=== PATIENT | male | born 1955 | race Caucasian/White ===

== ENCOUNTER 2021-05-17 02:57 | Emergency (ER) | payer MEDICARE, BC ==
[2021-05-17] MEDS ORDERED: ONDANSETRON 4 MG/2 ML VIAL IVP STA (03:40)
[2021-05-17] MEDS ORDERED: MORPHINE SULFATE 4 MG/ML SYRINGE IV STA (03:40)
[2021-05-17 04:19] LABS: Basophils % (A) 0 %; Eosinophils # (A) 0.1 k/uL (0-0.7); Eosinophils % (A) 1 %; HCT 41.3 % (39.0-53.0); HGB 14.2 gm/dL (13.0-17.5); Lymphocytes # (A) 1.7 k/uL (1.0-4.8); Lymphocytes % (A) 14 %; MCH 32.9 pg (25.0-35.0); MCHC 34.3 g/dL (31.0-37.0); MCV 95.8 fL (80.0-100.0); Mean Platelet Volume 8.1; Monocytes # (A) 0.6 k/uL (0-1.0); Monocytes % (A) 5 %; Neutrophils # (A) 9.5 k/uL (1.3-7.7); Neutrophils % (A) 79 %; Platelet Count 265 k/uL (150-450); RBC 4.31 m/uL (4.30-5.90); RDW 12.8 % (11.5-15.5); WBC 12.1 k/uL (3.8-10.6)
[2021-05-17 04:28] LABS: Albumin 3.8 g/dL (3.5-5.0); Calcium 9.3 mg/dL (8.4-10.2); Potassium 3.9 mmol/L (3.5-5.1); Total Bilirubin 0.5 mg/dL (0.2-1.3); Total Protein 6.4 g/dL (6.3-8.2)
--- NOTE | 2021-05-17 04:56 | CT ---
EXAMINATION TYPE: CT abdomen pelvis wo con DATE OF EXAM: 05/17/2021 COMPARISON: None HISTORY: CT DLP: mGycm Automated exposure control for dose reduction was used. Exam performed without contrast. There is mild subsegmental atelectasis at the lung bases. There is no pleural effusion. There is no p ericardial effusion. Liver and spleen appear intact. There are clips from cholecystectomy. Stomach is intact. There is no pancreatic mass. The bile ducts are not dilated. There is no adrenal mass. Kidneys show normal size and contour. There is mild left-sided hydronephros is. There is 4 mm calculus in the mid left ureter at the level of the upper sacroiliac joint. There i s mild proximal hydroureter. I see no calculus within the kidneys. Bladder distends smoothly. There i s no inguinal hernia. There is no free fluid in the pelvis. Appendix is posterior and medial and appe ars normal. There is no mesenteric edema. There is no ascites or free air. There is no bowel obstruction. There a re a few sigmoid diverticula. There is no diverticulitis. Lumbar vertebra have normal alignment. There is no compression fracture. The posterior elements are i ntact. There is some facet arthropathy in the lower lumbar spine. There is moderate spinal stenosis a t L4-5 due to facet arthropathy. The bony pelvis is intact. The hip joints are intact. IMPRESSION: Obstructing calculus mid left ureter with left-sided hydronephrosis. Moderate spinal stenosis at L4-5.
[2021-05-17] MEDS ORDERED: TAMSULOSIN 0.4 MG CAP.ER.24H PO STA (05:03)
[2021-05-17] MEDS ORDERED: HYDROmorphone 0.5 MG/0.5 ML SYRINGE IVP STA (05:26)
--- NOTE | 2021-05-17 05:44 | ED ---
Back Pain HPI - General Chief Complaint: Back Pain/Injury Stated Complaint: Back pain Time Seen by Provider: 05/17/21 03:27 Source: patient Limitations: no limitations - History of Present Illness MD Complaint: back pain Onset/Timin -: days(s) Similar Symptoms Previously: No Place: home Radiation: none Severity: severe Quality: aching Consistency: constant Improves With: none Worsens With: none Associated Symptoms: diaphoresis, nausea/vomiting - Related Data Previous Rx's Medication Instructions Recorded HYDROcodone/APAP 5-325MG [[place] 1 tab PO Q4HR PRN 3 Days #18 tab 05/17/21 5-325] Ondansetron Odt [Zofran ODT] 4 mg PO Q8HR PRN #10 tab 05/17/21 Tamsulosin [Flomax] 0.4 mg PO DAILY #14 cap 05/17/21 Allergies Allergy/AdvReac Type Severity Reaction Status Date / Time Penicillins Allergy Anaphylaxis Verified 05/17/21 03:01 tree nut Allergy Anaphylaxis Verified 05/17/21 03:01 Review of Systems ROS Statement: Those systems with pertinent positive or pertinent negative responses have been documented in the HPI. ROS Other: All systems not noted in ROS Statement are negative. Constitutional: Denies: fever, chills, weakness Respiratory: Denies: cough, dyspnea Cardiovascular: Denies: chest pain, palpitations, edema Gastrointestinal: Reports: as per HPI, abdominal pain, nausea, vomiting. Denies: diarrhea, constipation, hematemesis, melena, hematochezia Genitourinary: Denies: dysuria, frequency, hematuria, testicular pain, testicular mass Musculoskeletal: Denies: back pain Skin: Denies: rash Neurological: Denies: headache, weakness, numbness Past Medical History Past Medical History: No Reported History History of Any Multi-Drug Resistant Organisms: None Reported Additional Past Surgical History / Comment(s): COLONOSCOPY Past Anesthesia/Blood Transfusion Reactions: No Reported Reaction Smoking Status: Never smoker Past Alcohol Use History: None Reported Past Drug Use History: None Reported General Exam Limitations: no limitations General appearance: alert, in distress Head exam: Present: atraumatic, normocephalic Eye exam: Present: normal appearance. Absent: scleral icterus, conjunctival injection Respiratory exam: Present: normal lung sounds bilaterally. Absent: respiratory distress, wheezes, rales, rhonchi, stridor Cardiovascular Exam: Present: regular rate, normal rhythm, normal heart sounds. Absent: systolic murmur, diastolic murmur, rubs, gallop GI/Abdominal exam: Present: soft. Absent: distended, tenderness, guarding, rebound, rigid, mass Extremities exam: Present: normal inspection, normal capillary refill. Absent: pedal edema, calf tenderness Back exam: Present: normal inspection, CVA tenderness (L). Absent: CVA tenderness (R), vertebral tenderness Neurological exam: Present: alert Skin exam: Present: warm, dry, intact, normal color Course Vital Signs 05/17/21 05/17/21 02:57 06:28 Temperature 97.9 F 97.5 F L Pulse Rate 76 66 Respiratory 20 16 Rate Blood Pressure 134/85 108/64 O2 Sat by Pulse 98 99 Oximetry Medical Decision Making - Lab Data Result diagrams: 05/17/21 03:54 05/17/21 03:54 Lab Results 05/17/21 05/17/21 05/17/21 Range/Units 03:54 03:54 04:08 WBC 12.1 H (3.8-10.6) k/uL RBC 4.31 (4.30-5.90) m/uL Hgb 14.2 (13.0-17.5) gm/dL Hct 41.3 (39.0-53.0) % MCV 95.8 (80.0-100.0) fL MCH 32.9 (25.0-35.0) pg MCHC 34.3 (31.0-37.0) g/dL RDW 12.8 (11.5-15.5) % Plt Count 265 (150-450) k/uL MPV 8.1 Neutrophils % 79 % Lymphocytes % 14 % Monocytes % 5 % Eosinophils % 1 % Basophils % 0 % Neutrophils # 9.5 H (1.3-7.7) k/uL Lymphocytes # 1.7 (1.0-4.8) k/uL Monocytes # 0.6 (0-1.0) k/uL Eosinophils # 0.1 (0-0.7) k/uL Basophils # 0.0 (0-0.2) k/uL D-Dimer 0.96 H (<0.60) mg/L FEU Sodium 141 (137-145) mmol/L Potassium 3.9 (3.5-5.1) mmol/L Chloride 110 H (98-107) mmol/L Carbon Dioxide 24 (22-30) mmol/L Anion Gap 7 mmol/L BUN 16 (9-20) mg/dL Creatinine 1.25 (0.66-1.25) mg/dL Est GFR (CKD-EPI)AfAm 69 (>60 ml/min/1.73 sqM) Est GFR (CKD-EPI)NonAf 60 (>60 ml/min/1.73 sqM) Glucose 165 H (74-99) mg/dL Calcium 9.3 (8.4-10.2) mg/dL Total Bilirubin 0.5 (0.2-1.3) mg/dL AST 24 (17-59) U/L ALT 20 (4-49) U/L Alkaline Phosphatase 89 (38-126) U/L Total Protein 6.4 (6.3-8.2) g/dL Albumin 3.8 (3.5-5.0) g/dL Amylase 115 H (30-110) U/L Lipase 563 H (23-300) U/L Disposition Clinical Impression: Calculus of kidney Disposition: HOME SELF-CARE Condition: Good Instructions (If sedation given, give patient instructions): Kidney Stones (ED) Prescriptions: Tamsulosin [Flomax] 0.4 mg PO DAILY #14 cap HYDROcodone/APAP 5-325MG [[place] 5-325] 1 tab PO Q4HR PRN 3 Days #18 tab PRN Reason: Pain Ondansetron Odt [Zofran ODT] 4 mg PO Q8HR PRN #10 tab PRN Reason: Nausea Is patient prescribed a controlled substance at d/c from ED?: Yes When asked, does pt state using other controlled substances?: No If prescribed controlled substance>3 days was MAPS reviewed?: Prescribed <3 Days If opioid is for acute pain is fill amount 7 days or less?: Yes If Rx opioid, was Start Talking consent form obtained?: Yes Referrals: Adrian Smiley DO [Primary Care Provider] - 1-2 days Guevara Robles MD [STAFF PHYSICIAN] - 1-2 days
[2021-05-17 06:28] VITALS: BP 108/64; PULSE 66; RESP 16; TEMP 97.5
[2021-05-17 07:26] LABS: Appearance,Urine Cloudy (Clear); Bilirubin,Urine Negative (Negative); Blood,Urine Negative (Negative); Calcium Oxalate Crystals,Urine Occasional /hpf; Color,Urine Yellow; Glucose,Urine (UA) Negative (Negative); Hyaline Casts,Urine 4 /lpf (0-2); Ketones,Urine Trace (Negative); Leukocyte Esterase,Urine Negative (Negative); Mucus,Urine Many /hpf; Nitrite,Urine Negative (Negative); PH, Urine 5.5 (5.0-8.0); Protein,Urine 1+ (Negative); RBC,Urine 3 /hpf (0-5); Specific Gravity,Urine 1.032 (1.001-1.035); Squamous Epithelial Cell,Urine 1 /hpf (0-4); WBC,Urine 5 /hpf (0-5)
== END 2021-05-17 07:53 | disposition home or self-care (01) ==
LOC: EC 02:57
DX: N13.2 Hydronephrosis with renal and ureteral calculous obstruction (principal)
CPT/HCPCS: 36415; 74176; 80053; 81001; 82150; 83690; 85025; 85379; 96374; 96375; 99284

== ENCOUNTER 2021-05-20 13:25 | Emergency (ER) | payer MEDICARE, BC ==
[2021-05-20 13:29] VITALS: BP 128/74; PULSE 67; RESP 20; TEMP 97.4
[2021-05-20] MEDS ORDERED: MORPHINE SULFATE 4 MG/ML SYRINGE IV STA (13:42)
[2021-05-20] MEDS ORDERED: SODIUM CHLORIDE 0.9% 1,000 ML IV STA (13:42)
[2021-05-20] MEDS ORDERED: ONDANSETRON ODT 4 MG TAB PO STA (13:42)
[2021-05-20] MEDS ORDERED: diphenhydrAMINE 50 MG/ML 1 ML VIAL IVP STA (13:43)
[2021-05-20 14:43] LABS: Basophils % (A) 0 %; Eosinophils # (A) 0.2 k/uL (0-0.7); Eosinophils % (A) 2 %; HCT 40.2 % (39.0-53.0); HGB 13.8 gm/dL (13.0-17.5); Lymphocytes # (A) 1.9 k/uL (1.0-4.8); Lymphocytes % (A) 23 %; MCH 33.6 pg (25.0-35.0); MCHC 34.4 g/dL (31.0-37.0); MCV 97.4 fL (80.0-100.0); Mean Platelet Volume 7.7; Monocytes # (A) 0.5 k/uL (0-1.0); Monocytes % (A) 6 %; Neutrophils # (A) 5.6 k/uL (1.3-7.7); Neutrophils % (A) 67 %; Platelet Count 272 k/uL (150-450); RBC 4.12 m/uL (4.30-5.90); RDW 12.8 % (11.5-15.5); WBC 8.3 k/uL (3.8-10.6)
[2021-05-20 14:46] LABS: Appearance,Urine Clear (Clear); Bacteria,Urine Rare /hpf; Bilirubin,Urine Negative (Negative); Blood,Urine Small (Negative); Color,Urine Yellow; Glucose,Urine (UA) Negative (Negative); Hyaline Casts,Urine 1 /lpf (0-2); Ketones,Urine Trace (Negative); Leukocyte Esterase,Urine Negative (Negative); Mucus,Urine Many /hpf; Nitrite,Urine Negative (Negative); PH, Urine 5.5 (5.0-8.0); Protein,Urine 1+ (Negative); RBC,Urine 22 /hpf (0-5); Specific Gravity,Urine 1.035 (1.001-1.035); Squamous Epithelial Cell,Urine <1 /hpf (0-4); WBC,Urine 1 /hpf (0-5)
[2021-05-20 14:58] LABS: Albumin 3.9 g/dL (3.5-5.0); Calcium 9.1 mg/dL (8.4-10.2); Potassium 4.4 mmol/L (3.5-5.1); Total Bilirubin 0.5 mg/dL (0.2-1.3); Total Protein 6.4 g/dL (6.3-8.2)
--- NOTE | 2021-05-20 14:59 | XR ---
EXAMINATION TYPE: XR KUB portable DATE OF EXAM: 05/20/2021 COMPARISON: None INDICATION: Left-sided pain TECHNIQUE: Single view abdomen frontal projection FINDINGS: Very little bowel gas is present. Psoas margins are normal. No organomegaly is present. No suspicious calcifications evident. IMPRESSION: 1. Unremarkable nonspecific Abdomen
[2021-05-20] MEDS ORDERED: KETOROLAC 15 MG/ML 1 ML VIAL IVP STA (15:06)
--- NOTE | 2021-05-20 15:16 | ED ---
General Adult HPI - General Chief complaint: Back Pain/Injury Stated complaint: Revisit Kidney Stone Time Seen by Provider: 05/20/21 13:30 Source: patient, RN notes reviewed Mode of arrival: ambulatory Limitations: no limitations - History of Present Illness Initial comments: Patient is a 65-year-old male that presents to the emergency department with a history of recurrent kidney stone. He notes he was discharged from the hospital on the with some pain medication and instructions to increase oral fluids and follow-up primary care. But to return if pain increases. He notes that the pain is significantly increased as of this morning and return to the emergency room for symptomatic control. He notes that he is taking his [place] 5 and tamsu losin that his primary care prescribed. He did appear to be in moderate amount of pain while sitting up in bed during exam and interview. He noted that the pain was approximately 10 out of 10 with no relief from any home medications. He did note that he was mildly nauseous but denied any vomiting. Patient denied any chest pain shortness of breath headache vomiting diarrhea constipation fever fatigue chills. - Related Data Home Medications Medication Instructions Recorded Confirmed Atorvastatin [Lipitor] 10 mg PO HS 05/20/21 05/20/21 Previous Rx's Medication Instructions Recorded HYDROcodone/APAP 5-325MG [[place] 1 tab PO Q4HR PRN 3 Days #18 tab 05/17/21 5-325] Ondansetron Odt [Zofran ODT] 4 mg PO Q8HR PRN #10 tab 05/17/21 Tamsulosin [Flomax] 0.4 mg PO DAILY #14 cap 05/17/21 Ibuprofen [Motrin] 800 mg PO Q6HR #30 tab 05/20/21 Allergies Allergy/AdvReac Type Severity Reaction Status Date / Time Penicillins Allergy Anaphylaxis Verified 05/20/21 13:50 tree nut Allergy Anaphylaxis Verified 05/20/21 13:50 Review of Systems ROS Statement: Those systems with pertinent positive or pertinent negative responses have been documented in the HPI. ROS Other: All systems not noted in ROS Statement are negative. Past Medical History Past Medical History: No Reported History History of Any Multi-Drug Resistant Organisms: None Reported Past Surgical History: No Surgical Hx Reported Additional Past Surgical History / Comment(s): COLONOSCOPY Past Anesthesia/Blood Transfusion Reactions: No Reported Reaction Past Psychological History: No Psychological Hx Reported Smoking Status: Never smoker Past Alcohol Use History: None Reported Past Drug Use History: None Reported General Exam Limitations: no limitations Course Vital Signs 05/20/21 13:27 Temperature 97.4 F L Pulse Rate 67 Respiratory 20 Rate Blood Pressure 128/74 O2 Sat by Pulse 98 Oximetry Medical Decision Making - Medical Decision Making 65-year-old male complaining of left-sided kidney stone pain. Labs, x-ray, 4 mg of morphine, 1 L normal saline ordered. Labs unremarkable from previous studies. X-ray imaging unremarkable. 15 mg of Toradol ordered due to patient's continuing pain or discomfort. Case discussed with Dr. Ron, patient discharge home with continued conservative management therapy. Upon reevaluation patient feels much more comfortable and is ready to go home. - Lab Data Result diagrams: 05/20/21 13:58 05/20/21 13:58 Lab Results 05/20/21 05/20/21 05/20/21 Range/Units 13:58 13:58 14:29 WBC 8.3 (3.8-10.6) k/uL RBC 4.12 L (4.30-5.90) m/uL Hgb 13.8 (13.0-17.5) gm/dL Hct 40.2 (39.0-53.0) % MCV 97.4 (80.0-100.0) fL MCH 33.6 (25.0-35.0) pg MCHC 34.4 (31.0-37.0) g/dL RDW 12.8 (11.5-15.5) % Plt Count 272 (150-450) k/uL MPV 7.7 Neutrophils % 67 % Lymphocytes % 23 % Monocytes % 6 % Eosinophils % 2 % Basophils % 0 % Neutrophils # 5.6 (1.3-7.7) k/uL Lymphocytes # 1.9 (1.0-4.8) k/uL Monocytes # 0.5 (0-1.0) k/uL Eosinophils # 0.2 (0-0.7) k/uL Basophils # 0.0 (0-0.2) k/uL Sodium 139 (137-145) mmol/L Potassium 4.4 (3.5-5.1) mmol/L Chloride 106 (98-107) mmol/L Carbon Dioxide 25 (22-30) mmol/L Anion Gap 8 mmol/L BUN 14 (9-20) mg/dL Creatinine 1.19 (0.66-1.25) mg/dL Est GFR (CKD-EPI)AfAm 73 (>60 ml/min/1.73 sqM) Est GFR (CKD-EPI)NonAf 63 (>60 ml/min/1.73 sqM) Glucose 117 H (74-99) mg/dL Calcium 9.1 (8.4-10.2) mg/dL Total Bilirubin 0.5 (0.2-1.3) mg/dL AST 26 (17-59) U/L ALT 24 (4-49) U/L Alkaline Phosphatase 99 (38-126) U/L Total Protein 6.4 (6.3-8.2) g/dL Albumin 3.9 (3.5-5.0) g/dL Urine Color Yellow Urine Appearance Clear (Clear) Urine pH 5.5 (5.0-8.0) Ur Specific [place] 1.035 (1.001-1.035) Urine Protein 1+ H (Negative) Urine Glucose (UA) Negative (Negative) Urine Ketones Trace H (Negative) Urine Blood Small H (Negative) Urine Nitrite Negative (Negative) Urine Bilirubin Negative (Negative) Urine Urobilinogen 2.0 (<2.0) mg/dL Ur Leukocyte Esterase Negative (Negative) Urine RBC 22 H (0-5) /hpf Urine WBC 1 (0-5) /hpf Ur Squamous Epith Cells <1 (0-4) /hpf Urine Bacteria Rare H (None) /hpf Hyaline Casts 1 (0-2) /lpf Urine Mucus Many H (None) /hpf - Radiology Data Radiology results: report reviewed, image reviewed KUB: Very little bowel gas is present. Psoas margins are normal. No organomegaly is present. No suspicious calcifications evident. Unremarkable nonspecific abdomen. Disposition Clinical Impression: Calculus of kidney Disposition: HOME SELF-CARE Condition: Stable Instructions (If sedation given, give patient instructions): Kidney Stones (ED) Additional Instructions: Please return to the Emergency Department if symptoms worsen or any other concerns. Follow-up with primary care as needed. Continue at home pain medication and tamsulosin as prescribed. Can take Motrin 800 every 8 hours in between [place] 5. Increase oral fluids. Is patient prescribed a controlled substance at d/c from ED?: No Referrals: Adrian Smiley DO [Primary Care Provider] - 1-2 days Time of Disposition: 16:30
[2021-05-20] MEDS ORDERED: MORPHINE SULFATE 4 MG/ML SYRINGE IVP STA (15:45)
== END 2021-05-20 17:19 | disposition home or self-care (01) ==
LOC: EC 13:25
DX: N20.0 Calculus of kidney (principal); Z88.0 Allergy status to penicillin; Z91.018 Allergy to other foods
CPT/HCPCS: 36415; 80053; 85025; 81001; 74018; 99284; 96374; 96375; 96361; J2270; J1200; J1885

== ENCOUNTER 2021-06-01 | Emergency (ER) | payer MEDICARE, BC | END 2021-06-01 22:43 | disposition home or self-care (01) | CPT/HCPCS: 36415; 80053; 83690; 85025; 81001; 99283; 96374; 96361; J1885 ==

== ENCOUNTER 2021-06-07 11:00 | Day surgery (SDC) | payer MEDICARE, BC ==
[2021-06-06 09:23] VITALS: BMI 28.0
--- NOTE | 2021-06-06 20:32 | P.GSHP ---
History of Present Illness H&P Date: 06/06/21 65 yo male who has been trying to pass a left ureteral stone for several weeks, 5mm. It remains in the ureter based on symptoms. He comes for left ureteroscopy and laser lithotripsy to rid him of the stone. this is the patientw first stone. He has no fever and his urine is not infected. - Constitutional Constitutional: Denies chills, Denies fever - EENT Eyes: denies blurred vision, denies pain Ears, nose, mouth and throat: Denies headache, Denies sore throat - Cardiovascular Cardiovascular: Denies chest pain, Denies shortness of breath - Respiratory Respiratory: Denies cough, Denies 7 - Gastrointestinal Gastrointestinal: Denies abdominal pain, Denies diarrhea, Denies nausea, Denies vomiting - Genitourinary (Female) Genitourinary: Denies dysuria, Denies hematuria - Genitourinary (Male) Genitourinary: Denies dysuria, Denies hematuria - Musculoskeletal Musculoskeletal: Denies myalgias - Integumentary Integumentary: Denies pruritus, Denies rash - Neurological Neurological: Denies numbness, Denies weakness - Psychiatric Psychiatric: Denies anxiety, Denies depression - Endocrine Endocrine: Denies fatigue, Denies weight change Past Medical History Past Medical History: Cancer Additional Past Medical History / Comment(s): SKIN CANCER, KIDNEY STONES History of Any Multi-Drug Resistant Organisms: None Reported Past Surgical History: Cholecystectomy Additional Past Surgical History / Comment(s): COLONOSCOPY Past Anesthesia/Blood Transfusion Reactions: No Reported Reaction Past Psychological History: No Psychological Hx Reported Smoking Status: Never smoker Past Alcohol Use History: Occasional Past Drug Use History: None Reported - Past Family History Mother Family Medical History: Cancer Additional Family Medical History / Comment(s): BREAST CANCER Medications and Allergies Home Medications Medication Instructions Recorded Confirmed Type Tamsulosin [Flomax] 0.4 mg PO DAILY #14 cap 05/17/21 06/06/21 Rx Atorvastatin [Lipitor] 10 mg PO HS 05/20/21 06/06/21 History Ibuprofen [Motrin] 800 mg PO TID PRN 06/06/21 06/06/21 History Allergies Allergy/AdvReac Type Severity Reaction Status Date / Time Penicillins Allergy Anaphylaxis Verified 06/06/21 09:02 tree nut Allergy Anaphylaxis Verified 06/06/21 09:02 Surgical - Exam - General well developed, well nourished, no distress - Eyes PERRL - ENT no hearing loss - Respiratory normal expansion, normal respiratory effort - Cardiovascular Rhythm: regular - Abdomen Abdomen: soft, tender - Genitourinary normal penis with no external lesions, testicles present - Integumentary no rash, no growths - Neurologic normal coordination, normal sensation - Musculoskeletal normal gait, normal posture - Psychiatric oriented to time, oriented to person, oriented to place, speech is normal, memory intact Results - Imaging CT scan - abdomen: report reviewed, image reviewed CT scan - pelvis: report reviewed, image reviewed Assessment and Plan Assessment: Impression. Left ureteral stone with obstruction and colic Plan: Left ureteroscopy with laser lithotripsy, possible stent placement.
[~2021-06-07 11:00] MED LIST: CLINDAMYCIN 900 MG in DEXTROSE 5% IN WATER 50 ML IVPB PRN; DEXAMETHASONE SOD PHOSPHATE 4 MG/ML 1 ML VIAL IV ONE; GENTAMICIN 440 MG in SODIUM CHLORIDE 0.9% 100 ML IVPB PRN; HYDROmorphone 0.5 MG/0.5 ML SYRINGE IVP PRN; LACTATED RINGERS 1,000 ML IV SCH; LIDOCAINE 1% (10MG/ML) FOR IV START INTRADERMA PRN; ONDANSETRON 4 MG/2 ML VIAL IVP ONE
--- NOTE | 2021-06-07 11:36 | XR ---
KUB HISTORY: Preop, left-sided kidney stone Frontal KUB submitted and correlated prior exam 05/20/2021, CT 05/17/2021 There is an oval density superimposed of the left kidney measuring approximately 15 mm which may be o utside of the kidney. There is a levoscoliosis centered at the mid lumbar spine. Degenerative disc ch anges are present. No evident bowel obstruction or pneumoperitoneum. The previously identified left u reteral calcification is not seen with certainty. IMPRESSION: Previously identified left ureteral calcification may be superimposed over the left sacru m. Indeterminate density over the left kidney.
[2021-06-07] MEDS ORDERED: fentaNYL (PF) 50 MCG/ML 2 ML AMP ONE (12:24)
[2021-06-07] MEDS ORDERED: SUCCINYLCHOLINE CHLORIDE 100 MG/5 ML SYR IV ONE (12:24)
[2021-06-07] MEDS ORDERED: LIDOCAINE 1% INJ 10MG/ML (20 ML MDV) ONE (12:24)
[2021-06-07] MEDS ORDERED: PROPOFOL 10 MG/ML 20 ML VIAL IV ONE (12:24)
[2021-06-07] MEDS ORDERED: MIDAZOLAM 2 MG/2 ML VIAL ONE (12:24)
[2021-06-07] MEDS ORDERED: IOPAMIDOL-370 50ML BTL IRRIGATION ONE (12:52)
--- NOTE | 2021-06-07 13:20 | P.OP ---
Date of Procedure: 06/07/21 Preoperative Diagnosis: left ureteral calculus Postoperative Diagnosis: same Procedure(s) Performed: cystoscopy, left ureteroscopy with laser lithotripsy Anesthesia: JEANNEA Surgeon: Guevara Robles Estimated Blood Loss (ml): 10 Pathology: other (stone) Condition: stable Disposition: PACU Indications for Procedure: the patient is 65. He has had a stone in the left ureter for about 3 weeks. He is having discomfort. He like the stone removed before he goes on vacation in the near future. Description of Procedure: the patient is brought to the operating suite. He was given general anesthesia. He's placed lithotomy position and sterile prep and drape. Cystoscopy Foroblique lens and 21-Mozambican sheath identifies a normal urethra. The prostate shows trilobar obstruction. The bladder wall shows moderate trabeculation. The left orifice is identified. Within a cone-tipped catheter a leftretrograde pyelogramwas performed. There is a filling defect just outside the intramural tunnel. I passed the semirigid ureteroscope but meet resistance just distal to the stone. He requires me to dilate the ureter with a 12-[place]ozambican dilating balloon after using an 035 wire. I then able to pass the scope to the stone. The stone is broken into tiny fragments with the 270 laser probe and 4 W of energy. The stone flushed out of the ureter and pieces are collected. The bladder is drained the patient was awakened and returned recovery room in good condition. He'll be discharged home upon recovery.
[2021-06-07 13:25] VITALS: RESP 16; TEMP 97.2
--- NOTE | 2021-06-07 14:05 | FL ---
Fluoroscopy HISTORY: Ureteroscopy 84 seconds fluoroscopy time supplied to the referring clinician. 1 intraoperative C-arm images docum ent the procedure. See dictated report from urology.
[2021-06-07 14:10] VITALS: PULSE 62
[2021-06-07 14:32] VITALS: BP 128/81
== END 2021-06-07 15:02 | disposition home or self-care (01) ==
LOC: OR 11:00
PROVIDERS: ATTEND Urology
DX: N20.1 Calculus of ureter (principal); Z85.828 Personal history of other malignant neoplasm of skin; Z87.442 Personal history of urinary calculi; Z90.49 Acquired absence of other specified parts of digestive tract; Z98.890 Other specified postprocedural states; Z80.3 Family history of malignant neoplasm of breast; Z79.899 Other long term (current) drug therapy; Z88.0 Allergy status to penicillin; Z91.018 Allergy to other foods
CPT/HCPCS: 82365; 74018; 52353; C1758; C1769; J2250; J1100; J2405; J2001; J3010; J1580; J0330; J2704; Q9967

== ENCOUNTER 2021-06-08 05:30 | Emergency (ER) | payer MEDICARE, BC ==
[2021-06-08 05:35] VITALS: TEMP 97.6
[2021-06-08] MEDS ORDERED: HYDROmorphone 0.5 MG/0.5 ML SYRINGE IVP STA (05:46)
[2021-06-08 06:26] LABS: Albumin 3.8 g/dL (3.5-5.0); Calcium 9.4 mg/dL (8.4-10.2); Potassium 4.2 mmol/L (3.5-5.1); Total Bilirubin 0.3 mg/dL (0.2-1.3); Total Protein 6.3 g/dL (6.3-8.2)
--- NOTE | 2021-06-08 06:28 | ED ---
Abdominal Pain HPI - General Source: patient Mode of arrival: ambulatory Limitations: no limitations - History of Present Illness MD Complaint: flank pain -: hour(s) Location: L flank Radiation: other Severity: severe (Current) Quality: aching Consistency: colicky Improves With: nothing Worsens With: nothing Associated Symptoms: nausea <Dereje Sánchez - Last Filed: 06/08/21 07:21> <Timbo Umana - Last Filed: 06/08/21 10:21> - General Chief Complaint: Abdominal Pain Stated Complaint: Kidney stones Time Seen by Provider: 06/08/21 05:46 - History of Present Illness Initial Comments: This patient is a 65-year-old man who presents with a recurrence of left flank pain which came on tonight. Yesterday the patient had a ureteroscopy with laser lithotripsy. The patient states that he had felt pretty well following the procedure until tonight. He had gotten up to use the bathroom and then had worsening flank pain. He did try taking the [place] that he had at home but the pain continued to worsen. The patient denies fever or chills. He has had some nausea. No jose f abdominal pain. No change in bowel movements. He has had some blood following the procedure and his urine. (Dereje Sánchez) - Related Data Home Medications Medication Instructions Recorded Confirmed Atorvastatin [Lipitor] 10 mg PO HS 05/20/21 06/08/21 Ibuprofen [Motrin] 800 mg PO TID PRN 06/06/21 06/08/21 Previous Rx's Medication Instructions Recorded Tamsulosin [Flomax] 0.4 mg PO DAILY #14 cap 05/17/21 HYDROcodone/APAP 5-325MG [Erath 1 tab PO Q4HR PRN #10 tab 06/07/21 5-325] Allergies Allergy/AdvReac Type Severity Reaction Status Date / Time Penicillins Allergy Anaphylaxis Verified 06/08/21 10:12 tree nut Allergy Anaphylaxis Verified 06/08/21 10:12 Review of Systems ROS Other: All systems not noted in ROS Statement are negative. Constitutional: Denies: fever, chills Respiratory: Denies: cough, dyspnea Cardiovascular: Denies: chest pain, palpitations, edema Gastrointestinal: Reports: as per HPI, abdominal pain (Left flank), nausea. Denies: diarrhea, constipation, melena, hematochezia Genitourinary: Reports: frequency, hematuria. Denies: dysuria, discharge Musculoskeletal: Denies: back pain Skin: Denies: rash Neurological: Denies: headache, weakness, numbness Hematological/Lymphatic: Denies: easy bleeding <SherrellshanaDereje - Last Filed: 06/08/21 07:21> ROS Other: All systems not noted in ROS Statement are negative. <Timbo Umana - Last Filed: 06/08/21 10:21> ROS Statement: Those systems with pertinent positive or pertinent negative responses have been documented in the HPI. Past Medical History Past Medical History: Cancer Additional Past Medical History / Comment(s): SKIN CANCER, KIDNEY STONES History of Any Multi-Drug Resistant Organisms: None Reported Past Surgical History: Cholecystectomy Additional Past Surgical History / Comment(s): COLONOSCOPY Past Anesthesia/Blood Transfusion Reactions: No Reported Reaction Past Psychological History: No Psychological Hx Reported Smoking Status: Never smoker Past Alcohol Use History: Occasional Past Drug Use History: None Reported - Past Family History Mother Family Medical History: Cancer Additional Family Medical History / Comment(s): BREAST CANCER <SherrellshanaDereje - Last Filed: 06/08/21 07:21> General Exam Limitations: no limitations General appearance: alert, in no apparent distress Head exam: Present: atraumatic, normocephalic Neck exam: Present: normal inspection Respiratory exam: Present: normal lung sounds bilaterally. Absent: respiratory distress, wheezes, rales, rhonchi, stridor Cardiovascular Exam: Present: regular rate, normal rhythm, normal heart sounds. Absent: systolic murmur, diastolic murmur, rubs, gallop GI/Abdominal exam: Present: soft. Absent: distended, tenderness, guarding, rebound, rigid, mass, pulsatile mass, hernia Extremities exam: Present: normal inspection, normal capillary refill. Absent: pedal edema, calf tenderness Back exam: Present: normal inspection, CVA tenderness (L). Absent: CVA tenderness (R) Neurological exam: Present: alert Skin exam: Present: warm, dry, intact, normal color. Absent: rash <SherrellDereje saldana - Last Filed: 06/08/21 07:21> Course Vital Signs 06/08/21 06/08/21 05:33 09:57 Temperature 97.6 F Pulse Rate 74 87 Respiratory 18 16 Rate Blood Pressure 145/81 132/79 O2 Sat by Pulse 99 99 Oximetry Medical Decision Making - Lab Data Result diagrams: 06/08/21 06:00 06/08/21 06:00 <Dereje Sánchez - Last Filed: 06/08/21 07:21> - Lab Data Result diagrams: 06/08/21 06:00 06/08/21 06:00 - Radiology Data Radiology results: report reviewed (Computed tomography scan abdomen pelvis shows mild left hydronephrosis. Possible urethral stone.) <Timbo Umana - Last Filed: 06/08/21 10:21> - Medical Decision Making Patient reevaluated by myself, Dr. Umana. Patient is feeling much better. Patient updated on results. Case was discussed with Dr. Lennon was family with this patient and comfortable with discharge. (Timbo Umana) - Lab Data Lab Results 06/08/21 06/08/21 06/08/21 Range/Units 06:00 06:00 07:32 WBC 12.5 H (3.8-10.6) k/uL RBC 4.16 L (4.30-5.90) m/uL Hgb 13.1 (13.0-17.5) gm/dL Hct 40.8 (39.0-53.0) % MCV 98.1 (80.0-100.0) fL MCH 31.5 (25.0-35.0) pg MCHC 32.1 (31.0-37.0) g/dL RDW 13.6 (11.5-15.5) % Plt Count 292 (150-450) k/uL MPV 8.2 Neutrophils % 82 % Lymphocytes % 11 % Monocytes % 6 % Eosinophils % 0 % Basophils % 0 % Neutrophils # 10.3 H (1.3-7.7) k/uL Lymphocytes # 1.4 (1.0-4.8) k/uL Monocytes # 0.7 (0-1.0) k/uL Eosinophils # 0.0 (0-0.7) k/uL Basophils # 0.0 (0-0.2) k/uL Sodium 140 (137-145) mmol/L Potassium 4.2 (3.5-5.1) mmol/L Chloride 109 H (98-107) mmol/L Carbon Dioxide 22 (22-30) mmol/L Anion Gap 9 mmol/L BUN 24 H (9-20) mg/dL Creatinine 1.81 H (0.66-1.25) mg/dL Est GFR (CKD-EPI)AfAm 44 (>60 ml/min/1.73 sqM) Est GFR (CKD-EPI)NonAf 38 (>60 ml/min/1.73 sqM) Glucose 145 H (74-99) mg/dL Calcium 9.4 (8.4-10.2) mg/dL Total Bilirubin 0.3 (0.2-1.3) mg/dL AST 33 (17-59) U/L ALT 24 (4-49) U/L Alkaline Phosphatase 88 (38-126) U/L Total Protein 6.3 (6.3-8.2) g/dL Albumin 3.8 (3.5-5.0) g/dL Amylase 134 H (30-110) U/L Lipase 1171 H (23-300) U/L Urine Color Yellow Urine Appearance Clear (Clear) Urine pH 5.5 (5.0-8.0) Ur Specific [place] 1.011 (1.001-1.035) Urine Protein Trace H (Negative) Urine Glucose (UA) Negative (Negative) Urine Ketones Negative (Negative) Urine Blood Large H (Negative) Urine Nitrite Negative (Negative) Urine Bilirubin Negative (Negative) Urine Urobilinogen <2.0 (<2.0) mg/dL Ur Leukocyte Esterase Trace H (Negative) Urine RBC 171 H (0-5) /hpf Urine WBC 11 H (0-5) /hpf Ur Squamous Epith Cells <1 (0-4) /hpf Urine Bacteria Occasional H (None) /hpf Hyaline Casts 23 H (0-2) /lpf Urine Mucus Rare H (None) /hpf Disposition Is patient prescribed a controlled substance at d/c from ED?: No <Dereje Sánchez - Last Filed: 06/08/21 07:21> Is patient prescribed a controlled substance at d/c from ED?: No Time of Disposition: 10:21 <Timbo Umana - Last Filed: 06/08/21 10:21> Clinical Impression: Calculus of kidney, Flank pain Disposition: HOME SELF-CARE Condition: Good Instructions (If sedation given, give patient instructions): Flank Pain (ED), Kidney Stones (ED) Additional Instructions: Please follow-up with Dr. Lennon in the next couple days for recheck, call for appointment and possible repeat lab work. Return for increased pain, fevers, worsening symptoms, unable to urinate or other concerns. Referrals: Adrian Smiley DO [Primary Care Provider] - 1-2 days Guevara Robles MD [STAFF PHYSICIAN] - 1-2 days
[2021-06-08 06:54] LABS: Basophils % (A) 0 %; Eosinophils % (A) 0 %; HCT 40.8 % (39.0-53.0); HGB 13.1 gm/dL (13.0-17.5); Lymphocytes # (A) 1.4 k/uL (1.0-4.8); Lymphocytes % (A) 11 %; MCH 31.5 pg (25.0-35.0); MCHC 32.1 g/dL (31.0-37.0); MCV 98.1 fL (80.0-100.0); Mean Platelet Volume 8.2; Monocytes # (A) 0.7 k/uL (0-1.0); Monocytes % (A) 6 %; Neutrophils # (A) 10.3 k/uL (1.3-7.7); Neutrophils % (A) 82 %; Platelet Count 292 k/uL (150-450); RBC 4.16 m/uL (4.30-5.90); RDW 13.6 % (11.5-15.5); WBC 12.5 k/uL (3.8-10.6)
[2021-06-08] MEDS ORDERED: SODIUM CHLORIDE 0.9% 500 ML 500 ML IV STA (07:01)
[2021-06-08 07:52] LABS: Appearance,Urine Clear (Clear); Bacteria,Urine Occasional /hpf; Bilirubin,Urine Negative (Negative); Blood,Urine Large (Negative); Color,Urine Yellow; Glucose,Urine (UA) Negative (Negative); Hyaline Casts,Urine 23 /lpf (0-2); Ketones,Urine Negative (Negative); Leukocyte Esterase,Urine Trace (Negative); Mucus,Urine Rare /hpf; Nitrite,Urine Negative (Negative); PH, Urine 5.5 (5.0-8.0); Protein,Urine Trace (Negative); RBC,Urine 171 /hpf (0-5); Specific Gravity,Urine 1.011 (1.001-1.035); Squamous Epithelial Cell,Urine <1 /hpf (0-4); Urobilinogen,Urine <2.0 mg/dL (<2.0); WBC,Urine 11 /hpf (0-5)
--- NOTE | 2021-06-08 08:17 | CT ---
EXAMINATION TYPE: CT abdomen pelvis wo con DATE OF EXAM: 06/08/2021 COMPARISON: None HISTORY: Lt flank pain post renal stone removal yesterday CT DLP: 840.9 mGycm Examination of the solid and hollow viscera is limited given the lack of contrast. FINDINGS: LUNG BASES: No evidence for nodule. No evidence for infiltrate. LIVER/GB: The gallbladder is surgically absent. No space-occupying hepatic lesion. PANCREAS: No pancreatic mass identified. No inflammatory process seen. SPLEEN: No evidence for splenomegaly. No intrasplenic lesions seen. ADRENALS: No adrenal nodules identified. No evidence for thickening. KIDNEYS: No evidence for renal mass. There is mild left-sided hydronephrosis without obstructing calc ulus within the left renal collecting system or ureter. A calculus is not identified within the urina ry bladder however there is a calculus within the region of the penile urethra seen best on image 160 and measures approximately 5.6 mm. There are a couple of additional penile calcifications noted of u ncertain etiology. BOWEL: Appendix has a normal appearance. No evidence of bowel obstruction. No inflammatory process. Lymph nodes: No evidence for adenopathy greater than 1 cm. Abdominal aorta: Atheromatous changes seen. No evidence for aneurysm. Genital organs: No significant abnormality. Other: No significant abnormality. IMPRESSION: There is mild left-sided hydronephrosis without obstructing calculus within the left renal collecting system or ureter. A calculus is not identified within the urinary bladder however there is a calculu s within the region of the penile urethra seen best on image 160 and measures approximately 5.6 mm. T here are a couple of additional penile calcifications noted of uncertain etiology.
[2021-06-08 10:52] VITALS: BP 140/79; PULSE 79; RESP 18
== END 2021-06-08 10:51 | disposition home or self-care (01) ==
LOC: EC 05:30
DX: N13.2 Hydronephrosis with renal and ureteral calculous obstruction (principal); Z88.0 Allergy status to penicillin; Z91.018 Allergy to other foods
CPT/HCPCS: 99284; 96374; 36415; 80053; 82150; 83690; 85025; 81001; 87086; 74176; J1170

== ENCOUNTER → 2022-12-07 | Outpatient (CLI) | payer MEDICARE, BC ==
[2022-12-07 19:23] LABS: ALT 23 U/L (10-49); AST 16 U/L (14-35); Chol/HDL Ratio 2.55 Ratio; LDL Cholesterol,Calculated 65.5 mg/dL (0.0-131.0); VLDL Calculation 16.62 mg/dL (5.00-40.00)
== END | disposition home or self-care (01) ==
LOC: LABWHC1 11:43
PROVIDERS: ATTEND Nurse Practitioner Adult Health
DX: E78.2 Mixed hyperlipidemia (principal)
CPT/HCPCS: 36415; 80061; 84450; 84460